=== PATIENT | female | born 1960 | race Caucasian/White ===

== ENCOUNTER 2021-02-05 15:09 | Outpatient (CLI) | payer OTHER, SELFPAY ==
[2021-02-05 16:09] LABS: CRP < 0.5 mg/dL (<1.0)
[2021-02-05 16:15] LABS: Erythrocyte Sedimentation Rate 19 mm/hr (0-20)
[2021-02-07 03:25] LABS: Tissue Transglutaminase IgG Ab 1 U/mL (<6)
[2021-02-10 11:50] LABS: Tissue Transglutaminase IgA Ab 1 U/mL (<4)
== END 2021-02-05 15:10 | disposition home or self-care (01) ==
LOC: ANHLAB 15:14
PROVIDERS: PCP Family Medicine; Visit Provider Internal Medicine Gastroenterology
DX: K52.9 Noninfective gastroenteritis and colitis, unspecified (principal)
CPT/HCPCS: 36415; 83516; 85652; 86140